=== PATIENT | female | born 1965 | race Caucasian/White ===

== ENCOUNTER 2024-03-05 18:49 | Emergency (ER) | payer OTHER, SELFPAY ==
[2024-03-05 18:52] VITALS: BP 142/119; PULSE 83; RESP 18; TEMP 36.7; O2SAT 99
--- NOTE | 2024-03-05 20:00 | DI.RAD_ITS ---
Exam(s) XR FOREARM RT XR WRIST RT COMPLETE EXAM: XR WRIST RT COMPLETE CLINICAL HISTORY: fall/ trauma. TECHNIQUE: 2D digital imaging was performed. Three views of the wrist. Two views of the forearm.. COMPARISON: CR,XR XR FOREARM RT from 03/05/2024 FINDINGS: BONES: Transverse fracture through the distal radial metaphysis. No visible extension to the articul ar surface. Anterior displacement. Slight angulation. Some impaction at the fracture site no addit ional fractures. No bony destructive lesion is seen. JOINTS: The carpal bones are normally aligned. The elbow is normally aligned. SOFT TISSUE: Swelling around wrist. IMPRESSION: Distal radial fracture. DATA REPOSITORY: RADIATION DOSE DELIVERED:
[2024-03-05 21:04] VITALS: BP 132/81; PULSE 79; RESP 20; TEMP 37.2; O2SAT 100
[2024-03-05 21:58] VITALS: BP 131/95; PULSE 80; TEMP 36.2; O2SAT 100
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
--- NOTE | 2024-03-05 22:29 | DI.VRAD_ITS ---
PROCEDURE INFORMATION: Exam: XR Right Wrist Exam date and time: 03/05/2024 8:41 PM Age: 58 years old Clinical indication: Fall, injury TECHNIQUE: Imaging protocol: Radiologic exam of the right wrist. Views: 3 or more views. COMPARISON: No relevant prior studies available. FINDINGS: Bones/joints: Closed, acute, transverse fracture of the right radial distal metaphysis with anterior displacement of the distal major fracture fragment. No dislocation. Soft tissues: No soft tissue radiopaque foreign body. Right wrist region soft tissue edema. IMPRESSION: Closed, acute, transverse fracture of the right radial distal metaphysis with anterior displacement of the distal major fracture fragment. Adjacent soft tissue edema. Dictated and Authenticated by: Berhane Tidwell MD. Ordering:LALIT Prasad MD
--- NOTE | 2024-03-05 22:29 | DI.VRAD_ITS ---
PROCEDURE INFORMATION: Exam: XR Right Forearm Exam date and time: 03/05/2024 8:44 PM Age: 58 years old Clinical indication: Fall, trauma TECHNIQUE: Imaging protocol: Radiologic exam of the right forearm. Views: 2 views. COMPARISON: CR XR WRIST RT COMPLETE 03/05/2024 8:41 PM FINDINGS: Bones/joints: Closed, acute, transverse fracture of the right radial distal metaphysis with anterior displacement of the distal major fracture fragment. No dislocation. Soft tissues: No soft tissue radiopaque foreign body. Right wrist region soft tissue edema. IMPRESSION: Closed, acute, transverse fracture of the right radial distal metaphysis with anterior displacement of the distal major fracture fragment. Adjacent soft tissue edema. Dictated and Authenticated by: Berhane Tidwell MD. Ordering:LALIT Prasad MD
--- NOTE | 2024-03-07 09:38 | NUR.NOTE ---
Accessed Pt chart to obtain diagnosis and Provider for the [facility] documents
== END 2024-03-05 22:26 | disposition home or self-care (01) ==
PROVIDERS: Emergency Provider Nurse Practitioner Family
DX: S52.321A Displaced transverse fracture of shaft of right radius, initial encounter for closed fracture (principal); V18.0XXA Pedal cycle driver injured in noncollision transport accident in nontraffic accident, initial encounter
CPT/HCPCS: 25500; 99284; 73090; 73110; 99283